=== PATIENT | male | born 2000 | race Caucasian/White ===

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

== ENCOUNTER 2023-01-15 12:25 | Inpatient (IN) ==
[2023-01-15 13:23] LABS: ABS Lymphocytes 1.4 10^3/uL (1.0-4.8); ABS Monocytes 0.5 10^3/uL (0.0-1.1); ABS Neutrophils 6.7 10^3/uL (1.5-7.6); Eosinophil % 0.5 %; Hematocrit 46.9 % (38-53); Lymphocyte % 16.3 %; Mean Corpuscular Hemoglobin 30.5 pg (27-33); Mean Corpuscular Hgb Conc 34.1 g/dL (31-36); Mean Corpuscular Volume 89.5 fL (80-97); Mean Platelet Volume 8.1 fL (7.5-11.2); Platelet Count 242 10^3/uL (150-450); Red Blood Count 5.25 10^6/uL (4.06-5.63); White Blood Count 8.7 10^3/uL (3.6-10.2)
[2023-01-15 13:59] LABS: Urine Appearance Clear; Urine Bacteria Absent (Absent); Urine Bilirubin Negative (Negative); Urine Blood Negative (Negative); Urine Color Yellow; Urine Glucose Negative (Negative); Urine Ketones Negative (Negative); Urine Nitrite Negative (Negative); Urine Protein Negative (Negative); Urine Red Blood Cell Trace(0-2/hpf) (Absent); Urine Specific Gravity 1.011 (1.002-1.030); Urine Squamous Epithelial Cell Present (Absent); Urine Urobilinogen Negative (Negative); Urine White Blood Cell Absent (Absent)
[2023-01-15 14:06] LABS: ALT 10 U/L (7-52); AST 14 U/L (13-39); Acetaminophen < 15 mcg/mL; Albumin 4.8 g/dL (3.2-5.2); Albumin/Globulin Ratio 1.5 (1-3); Alcohol, S < 13 mg/dL (<13); Alkaline Phosphatase 80 U/L (35-149); Anion Gap 8 mmol/L (2-16); Blood Urea Nitrogen 9 mg/dL (6-24); CO2 Carbon Dioxide 31 mmol/L (22-32); Calcium 10.2 mg/dL (8.6-10.3); Chloride 102 mmol/L (101-111); Creatinine, Serum 0.92 mg/dL (0.67-1.17); Globulin 3.2 g/dL (2-4); Glucose 93 mg/dL (70-100); Salicylate < 2.50 mg/dL (<30); Sodium 141 mmol/L (135-145); Total Bilirubin 0.6 mg/dL (0.2-1.0); eGFR CKD-EPI 122.1 (>60)
[2023-01-15] MEDS: Nicotine GUM 4MG FRUIT FLAVOR PO PRN ×2 (14:13→21:45)
[2023-01-15 14:14] LABS: TSH Ultra Thyroid Stim Horm 0.96 mcIU/mL (0.34-5.60)
[2023-01-15 14:21] LABS: Urine Benzodiazepine Screen None Detected (None Detect); Urine Cannabinoids Screen Presumptive Positive (None Detect); Urine Opiates Screen None Detected (None Detect)
[2023-01-15] MEDS ORDERED: Al Hydrox/Mg Hydrox/Simet LIQ 30 ML UDC PO PRN (18:22)
[2023-01-16] MEDS: Vitamin THERAPEUTIC TAB PO SCH (08:23)
[2023-01-16 09:50] LABS: HDL Cholesterol 49.9 mg/dL
[2023-01-16] MEDS: Nicotine GUM 4MG FRUIT FLAVOR PO PRN ×2 (13:40→17:39)
[2023-01-17] MEDS: Vitamin THERAPEUTIC TAB PO SCH (08:07)
[2023-01-17] MEDS: Nicotine GUM 4MG FRUIT FLAVOR PO PRN ×4 (08:48→21:34)
[2023-01-18] MEDS: Vitamin THERAPEUTIC TAB PO SCH (07:56)
[2023-01-18] MEDS: Nicotine GUM 4MG FRUIT FLAVOR PO PRN (10:22)
[2023-01-19] MEDS: Vitamin THERAPEUTIC TAB PO SCH (08:09)
[2023-01-19] MEDS: Nicotine GUM 4MG FRUIT FLAVOR PO PRN ×2 (10:24→18:37)
[2023-01-19 12:35] VITALS: BP 128/82
[2023-01-20] MEDS: Vitamin THERAPEUTIC TAB PO SCH (08:14)
[2023-01-20] MEDS: Nicotine GUM 4MG FRUIT FLAVOR PO PRN ×2 (12:16→15:36)
[2023-01-21] MEDS: Vitamin THERAPEUTIC TAB PO SCH (08:11)
[2023-01-21] MEDS: Nicotine GUM 4MG FRUIT FLAVOR PO PRN (12:37)
== END 2023-01-21 14:04 | disposition home or self-care (01) | DRG 755 ==
LOC: ED 12:25 → EDHOLD 16:25 → BSU 17:24
PROVIDERS: ADMIT Psychiatry & Neurology Psychiatry; ATTEND Psychiatry & Neurology Psychiatry